=== PATIENT | female | born 1950 | race Caucasian/White ===

== ENCOUNTER → 2022-04-10 | Outpatient (POV) | payer MEDICARE, OTHER, SELFPAY | LOC: M IRPOV 13:53 | PROVIDERS: ATTEND Radiology Diagnostic Radiology | DX: Z01.89 Encounter for other specified special examinations (principal) ==

== ENCOUNTER → 2022-04-17 | Outpatient (POV) | payer MEDICARE, OTHER ==
[2022-04-17 13:50] VITALS: BP 150/82
== END ==
LOC: M IRPOV 13:32
PROVIDERS: ATTEND Radiology Diagnostic Radiology
DX: M43.8X6 Other specified deforming dorsopathies, lumbar region (principal); C90.00 Multiple myeloma not having achieved remission

== ENCOUNTER → 2022-05-02 | Outpatient (CLI) | payer MEDICARE ==
[~2022-05-02] MED LIST: ACET-683 PO; ACYC1CAP20 PO; ASPI81CH33 PO; ASPI81TA26 PO; BANO25TA PO; CYCL-707 PO; HYDR2TAB2 PO; ISOVUE-300 61% 50ML VIAL As Ordered ONE; LIDOCAINE 1% MDV 20ML VIAL As Ordered ONE; LOPE1CAP5 PO; METO1TAB32 PO; MIDAZOLAM INJ 2MG/2ML VIAL (J2250 PER 1MG) As Ordered ONE; MM S100C PO; NS 1,000 ML IV SCH; OMEP1CAP73 PO; ONDA-83 PO; PARO20TA4 PO; PROMETHAZINE 25MG/ML 1ML VIAL As Ordered ONE; REVL5CAP2 PO; SYNT88TA2 PO; ceFAZolin 2 GM/D5W 50 ML IV BAG (J0690 PER 500MG) As Ordered ONE; ceFAZolin SOD 2 GM in IV 1 EA IV ONE; diphenhydrAMINE 50MG/ML VIAL (J1200) As Ordered ONE; fentaNYL 100 MCG/2 ML INJECTION As Ordered ONE
[2022-05-02 13:16] LABS: HEMATOCRIT 37.6 % (36.0-47.0); HEMOGLOBIN 11.8 g/dl (12.0-15.5); MEAN CORPUSCULAR HGB CONC 31.4 g/dl (32.0-36.5); MEAN CORPUSCULAR VOLUME 101.9 fl (80.0-96.0); PLATELET COUNT, AUTOMATED 154 10^3/uL (150-450); RED BLOOD COUNT 3.69 10^6/uL (4.00-5.40); WHITE BLOOD COUNT 3.6 10^3/uL (4.0-10.0)
[2022-05-02 17:15] VITALS: BP 132/63
== END ==
LOC: M IRPRO 10:40
PROVIDERS: ATTEND Radiology Diagnostic Radiology
DX: M84.48XA Pathological fracture, other site, initial encounter for fracture (principal); Z79.82 Long term (current) use of aspirin; Z79.890 Hormone replacement therapy; Z79.899 Other long term (current) drug therapy
CPT/HCPCS: 22514; 85027; 99152; 99153; J0690; J2250; J2550; J3010; Q9967

== ENCOUNTER → 2022-05-29 | Outpatient (POV) | payer MEDICARE, OTHER ==
[~2022-05-29] VITALS: Ht 157.5 cm; Wt 61.3 kg
[~2022-05-29] MED LIST changes: -ISOVUE-300 61% 50ML VIAL As Ordered ONE; -LIDOCAINE 1% MDV 20ML VIAL As Ordered ONE; -MIDAZOLAM INJ 2MG/2ML VIAL (J2250 PER 1MG) As Ordered ONE; -NS 1,000 ML IV SCH; -PROMETHAZINE 25MG/ML 1ML VIAL As Ordered ONE; -ceFAZolin 2 GM/D5W 50 ML IV BAG (J0690 PER 500MG) As Ordered ONE; -ceFAZolin SOD 2 GM in IV 1 EA IV ONE; -diphenhydrAMINE 50MG/ML VIAL (J1200) As Ordered ONE; -fentaNYL 100 MCG/2 ML INJECTION As Ordered ONE
[2022-05-29 11:30] VITALS: BP 163/89
== END ==
LOC: M IRPOV 11:28
PROVIDERS: ATTEND Radiology Diagnostic Radiology
DX: Z47.89 Encounter for other orthopedic aftercare (principal); C90.00 Multiple myeloma not having achieved remission; M84.58XA Pathological fracture in neoplastic disease, other specified site, initial encounter for fracture; M81.0 Age-related osteoporosis without current pathological fracture